=== PATIENT | female | born 1990 | race African-American/Black ===

== ENCOUNTER 2017-12-08 14:13 | Emergency (ER) | payer SELFPAY ==
[2017-12-08] MEDS ORDERED: Ketorolac Tromethamine 30 MG/ML VIAL ONE (15:37)
--- NOTE | 2017-12-08 16:04 | RAD ---
LUMBAR SPINE THREE VIEWS: 12/08/17 HISTORY: Low back pain. FINDINGS: There are five lumbar type vertebrae. Pedicles are intact. Vertebral body heights and alignment are m aintained. No acute fracture or dislocation. IMPRESSION: No acute osseous abnormalities are demonstrated. POS: [facility]
[2017-12-08] MEDS ORDERED: Acetaminophen/Codeine 30-300mg Tablet ONE (16:07)
[2017-12-08] MEDS ORDERED: Diazepam 5 MG TAB ONE (17:42)
== END 2017-12-08 18:01 | disposition home or self-care (01) ==
LOC: ERS 14:13
DX: M54.42 Lumbago with sciatica, left side (principal)
CPT/HCPCS: 72100; 93005; 96374; J1885

== ENCOUNTER 2020-02-09 16:51 | Emergency (ER) | payer BC, SELFPAY ==
[2020-02-09 19:02] LABS: #Eosinphils 0.1 thou/uL (0.0-0.7); #Lymphocytes 2.6 thou/uL (1.20-3.40); #Monocytes 0.4 thou/uL (0.11-0.59); #Neutrophils 2.7 thou/uL (1.40-6.50); %Basophils 0.1 % (0.0-1.0); %Lymphocytes 46.1 % (21.0-51.0); %Monocytes 6.5 % (0.0-10.0); %Neutrophils 46.3 % (42.0-75.0); Hemoglobin 10.2 g/dL (12.0-16.0); Mean Corpuscular HGB CONC 31.5 g/dL (32.0-36.0); Mean Corpuscular Hemoglobin 23.7 pg (27.0-31.0); Mean Corpuscular Volume 75.4 fL (78.0-98.0); Mean Platelet Volume 8.3 fL (7.4-10.4); Platelet Count 371 thou/uL (130-400); RBC Distribution Width 15.1 % (11.5-14.5); Red Blood Cell (RBC) Count 4.28 mill/uL (4.20-5.40); White Blood Cell (WBC) Count 5.7 thou/uL (4.8-10.8)
[2020-02-09 19:18] LABS: Bilirubin Negative (Negative); Blood, Urine Large (Negative); Glucose, Urine (Dipstick) >=1000 mg/dL (Negative); Ketone, Urine Negative (Negative); Leukocyte Negative (Negative); Nitrite Negative (Negative); Protein, Urine (Dipstick) 30 mg/dL (Neg-Trace); Specific Gravity, Urine 1.025 (1.005-1.030)
[2020-02-09 19:22] LABS: Clarity Turbid (Clear)
[2020-02-09 19:23] LABS: Pregnancy Test - Urine (BHCG) Negative (Negative); Pregu Control Background? CLEAR/WHITE (CLR/WHITE); Pregu Control Bar Appear? YES (CONTROL BAR); Specific Gravity 1.025 (1.002-1.036)
[2020-02-09 19:26] LABS: ALT (SGPT) 41 U/L (8-55); AST (SGOT) 34 U/L (5-34); Alkaline Phosphatase 82 U/L (40-110); Anion Gap 12 mmol/L (10-20); BUN (Urea Nitrogen) 10 mg/dL (7.0-18.7); Bilirubin, Total 0.2 mg/dL (0.2-1.2); Calc. Creatinine Clearance 0 mL/min (70-130); Calcium 9.2 mg/dL (7.8-10.44); Carbon Dioxide 25 mmol/L (22-29); Chloride 100 mmol/L (98-107); Estimated GFR-MDRD Greater than 90; Globulin 4.1 g/dL (2.4-3.5); Glucose 257 mg/dL (70-105); Lipase 16 U/L (8-78); Potassium 4.3 mmol/L (3.5-5.1); Protein, Total 8.1 g/dL (6.0-8.3); Sodium 133 mmol/L (136-145)
[2020-02-09 19:28] LABS: Bacteria/HPF None Seen HPF (None Seen); RBC/HPF Greater than 50 HPF (0-3); Squamous Epithelial None Seen HPF (0-3); WBC/HPF None Seen HPF (0-3)
[2020-02-09] MEDS ORDERED: Ondansetron ODT 4 MG TAB ONE (20:42)
== END 2020-02-09 20:45 | disposition home or self-care (01) ==
LOC: ERS 16:51
DX: N93.9 Abnormal uterine and vaginal bleeding, unspecified (principal)
CPT/HCPCS: 36415; 80053; 81003; 81015; 81025; 83690; 85025; 99284; Q0162